=== PATIENT | female | born 1970 | race Asian ===

== ENCOUNTER 2016-08-17 09:43 | Inpatient (IN) | payer SELFPAY ==
[~2016-08-17] VITALS: Ht 160 cm; Wt 59.0 kg
[2016-08-17 10:39] LABS: BASOPHIL % 0.4 % (0-2); PLATELET COUNT 242 x10^3mcL (130-400)
[2016-08-17 10:46] LABS: RED CELL DISTRIBUTION WIDTH 16.1 % (11.5-14.5)
[2016-08-17 10:58] LABS: microscopic required? YES; urine erythrocyte 3+ (NEGATIVE)
[2016-08-17] MEDS ORDERED: IRON 100 PLUS1 TAB PO (11:19)
[2016-08-17 12:53] LABS: BASOPHIL % 0.9 % (0-2); PLATELET COUNT 237 x10^3mcL (130-400)
[2016-08-17 12:55] LABS: RED CELL DISTRIBUTION WIDTH 16.1 % (11.5-14.5)
[2016-08-17 14:05] LABS: ALKALINE PHOSPHATASE 49 U/L (46-116); ALT/SGPT 21 U/L (14-59); AMYLASE 50 U/L (25-115); AST/SGOT 16 U/L (15-37); CALCIUM 8.1 mg/dL (8.5-10.1); CARBON DIOXIDE 23.7 mmol/L (21-32); CHLORIDE SERUM 100 mmol/L (98-107); CREATININE SERUM 0.6 mg/dL (0.6-1.0); GFR1 > 60 mL/min; GLUCOSE SERUM 113 mg/dL (74-106); HDL CHOLESTEROL 41 mg/dL (40-60); LIPASE 192 IU/L (73-393); MAGNESIUM 2.1 mg/dL (1.8-2.4); PHOSPHOROUS 2.5 mg/dL (2.5-4.9); POTASSIUM SERUM 4.2 mmol/L (3.5-5.1); SODIUM SERUM 134 mmol/L (136-145); TOTAL PROTEIN, SERUM 6.4 g/dL (6.4-8.2); TRIGLYCERIDES 89 mg/dL (<150)
[2016-08-17 14:12] LABS: T3 TOTAL 0.94 ng/mL
[2016-08-17 14:13] LABS: ALBUMIN 3.2 g/dL (3.4-5.0); CHOLESTEROL 132 mg/dL (<200); CHOLESTEROL/HDL RATIO 3.2
[2016-08-17 14:16] LABS: FREE T4 0.99 ng/dL (0.76-1.46); FREE THYROXINE INDEX 2.3 ug/dL (1.4-4.5); T4(THYROXINE) 7.1 ug/dL (4.7-13.3)
[2016-08-17 15:12] VITALS: BP 109/61
[2016-08-17 17:58] VITALS: BP 95/51
[2016-08-17 18:32] LABS: BASOPHIL % 0.2 % (0-2); PLATELET COUNT 243 x10^3mcL (130-400)
[2016-08-17 18:43] LABS: AMPHETAMINE QUAL UR NONE DETECTED (NEG <=1000)
[2016-08-17 18:46] LABS: RED CELL DISTRIBUTION WIDTH 16.2 % (11.5-14.5)
[2016-08-17 19:34] LABS: RED BLOOD CELLS 2.72 M/mm3 (4.10-5.10)
[2016-08-17 20:25] VITALS: BP 104/65
[2016-08-17 20:34] LABS: IRON 15 ug/dL (50-170); TOTAL IRON BINDING CAPACITY 244 ug/dL (250-450)
[2016-08-18 00:52] VITALS: BP 110/69
[2016-08-18 06:32] VITALS: BP 100/59
[2016-08-18 06:54] LABS: CALCIUM 7.6 mg/dL (8.5-10.1); CARBON DIOXIDE 23.2 mmol/L (21-32); CHLORIDE SERUM 112 mmol/L (98-107); CREATININE SERUM 0.6 mg/dL (0.6-1.0); GFR1 > 60 mL/min; GLUCOSE SERUM 91 mg/dL (74-106); POTASSIUM SERUM 4.3 mmol/L (3.5-5.1); SODIUM SERUM 143 mmol/L (136-145)
[2016-08-18 06:56] LABS: ALBUMIN 2.6 g/dL (3.4-5.0)
[2016-08-18 07:45] LABS: BASOPHIL % 0.4 % (0-2); PLATELET COUNT 221 x10^3mcL (130-400)
[2016-08-18 07:46] LABS: RED CELL DISTRIBUTION WIDTH 16.1 % (11.5-14.5)
[2016-08-18 09:27] LABS: rbc morphology (normal/abnorm) ABNORMAL (NORMAL)
[2016-08-18 09:42] VITALS: BP 103/59
== END 2016-08-18 11:59 | disposition left against medical advice (07) | DRG 760 ==
LOC: ED 09:43 → DU 13:09 → MU 08-18 05:56
PROVIDERS: Specialist; ADMIT Family Medicine
PROC: 30233N1 Transfusion of Nonautologous Red Blood Cells into Peripheral Vein, Percutaneous Approach (ICD-10-PCS; principal; 2016-08-17)
DX: D25.9 Leiomyoma of uterus, unspecified (principal); N17.0 Acute kidney failure with tubular necrosis; E87.1 Hypo-osmolality and hyponatremia; E44.0 Moderate protein-calorie malnutrition; N39.0 Urinary tract infection, site not specified; D64.9 Anemia, unspecified; E83.51 Hypocalcemia
CPT/HCPCS: 80307; 83880; 84439; J0694; J0696; J1885; J3360; J3490; J7030; J7040; Q0092